=== PATIENT | male | born 1985 | race Caucasian/White ===

== ENCOUNTER 2023-01-25 10:12 | Outpatient (CLI) | payer BC | END 2023-01-25 10:13 | disposition home or self-care (01) | LOC: SCSRAD 10:12 | PROVIDERS: ATTEND Allergy & Immunology | DX: J12.9 Viral pneumonia, unspecified (principal); J15.9 Unspecified bacterial pneumonia; J16.8 Pneumonia due to other specified infectious organisms | CPT/HCPCS: 71046 ==